=== PATIENT | female | born 1965 | race Caucasian/White ===

== ENCOUNTER 2018-11-24 00:40 | Outpatient (CLI) | payer OTHER, SELFPAY ==
--- NOTE | 2018-11-24 16:16 | DI.MAMMO_ITS ---
EXAM: MG MAMMO SCREENING CLINICAL HISTORY: SCREENING Z12.31. TECHNIQUE: Bilateral full field digital CC and MLO mammographic images were obtained with 3D tomosyn thesis and utilizing computer aided detection (CAD). COMPARISON: There are multiple priors with the most recent from 09/03/2016. FINDINGS: Masses/Architectural Distortion: None seen. Microcalcifications: No suspicious pleomorphic-type are seen. IMPRESSION: 1. No significant interval change with no specific features of malignancy noted. 2. Unless there is more urgent need, screening mammography is recommended, as per [place] [employer] guidelines. ACR BI-RAD Category- 1 Negative Breast Density - Category A - Almost entirely fatty A negative radiographic report should not delay biopsy if a dominant or clinically suspicious mass is present. Up to ten percent of cancers are not identified on mammography. A negative report may reinforce clinical impression. Adenosis and dense breasts may obscure an underlying neoplasm. False positive reports average 6 to 10%.
== END 2018-11-24 01:00 ==
PROVIDERS: PCP Family Medicine; Visit Provider Family Medicine
DX: Z12.31 Encounter for screening mammogram for malignant neoplasm of breast (principal)
CPT/HCPCS: 77063; 77067

== ENCOUNTER 2019-11-03 09:21 | Outpatient (REF) | payer MEDICAID, SELFPAY ==
[2019-11-03 21:40] LABS: HCT 43.8 % (36.0-46.0); HGB 13.7 g/dL (11.2-15.7); MCH 28.3 pg (27.0-33.0); MCHC 31.3 % (32.0-36.0); MCV 90.5 fL (80-95); Platelet Count 355 10^3/uL (130-400); RBC 4.84 10^6/uL (3.93-5.22); RDW 14.1 % (11.7-14.6); RDW-SD 46.7 fL; WBC 8.86 10^3/uL (4.4-10.8)
[2019-11-03 21:45] LABS: ALT 33 U/L (14-59); AST 20 U/L (15-37); Albumin 3.2 g/dL (3.4-5.0); Alkaline Phosphatase 179 U/L (46-116); Anion Gap 4.9 mmol/L (3-11); BUN 9 mg/dL (7-18); Bilirubin, Total 0.5 mg/dL (0.2-1.0); CO2 30.1 mmol/L (21.0-32.0); CREATININE 0.71 mg/dL (0.55-1.02); Calcium 9.1 mg/dL (8.5-10.1); Calculated LDL 97 mg/dL (<100); Chloride 104 mmol/L (98-107); Cholesterol 172 mg/dL (<200); Glucose 98 mg/dL (74-106); HDL Cholesterol 55 mg/dL (40-60); Potassium 4.5 mmol/L (3.5-5.1); Sodium 139 mmol/L (136-145); Total Protein 7.3 g/dL (6.4-8.2); Triglyceride 100 mg/dL (<150)
== END 2019-11-03 09:41 ==
LOC: NCHCN 09:21
PROVIDERS: PCP Family Medicine; Visit Provider Family Medicine
DX: E78.5 Hyperlipidemia, unspecified (principal); E66.9 Obesity, unspecified
CPT/HCPCS: 80053; 80061; 85027

== ENCOUNTER 2019-11-09 03:46 | Outpatient (CLI) | payer MEDICAID, SELFPAY ==
[2019-11-09 12:52] LABS: TSH 0.83 uIU/mL (0.36-3.74)
[2019-11-09 16:23] LABS: T3,Free 3.1 pg/mL (2.8-5.3)
[2019-11-09 16:39] LABS: T3, Total 145 ng/dL (97-169)
[2019-11-10 11:29] LABS: Parathyroid Hormone,Intact 65 pg/mL (19-88)
== END 2019-11-09 04:06 ==
PROVIDERS: PCP Family Medicine; Visit Provider Family Medicine
DX: R74.8 Abnormal levels of other serum enzymes (principal); E78.5 Hyperlipidemia, unspecified
CPT/HCPCS: 36415; 83915; 83970; 84436; 84439; 84443; 84480; 84481

== ENCOUNTER 2019-11-23 01:12 | Outpatient (CLI) | payer MEDICAID, SELFPAY ==
--- NOTE | 2019-11-23 | DI.US_ITS ---
EXAM: US ABDOMEN CLINICAL HISTORY: ELEVATED ALK PHOS,R74.8 TECHNIQUE: Ultrasound abdomen performed using standard protocol. COMPARISON: No exams were available for comparison FINDINGS: LIVER: Normal size and echogenicity. No focal liver lesions are seen.. GALLBLADDER:. Status post cholecystectomy BILIARY SYSTEM: No intrahepatic or extrahepatic biliary ductal dilation. KIDNEYS: Kidneys are symmetric in size. No evidence of renal calculi. No evidence of hydronephrosis. 2.6 centimeter cyst at the upper pole of the left kidney is identified. PANCREAS: Normal where visualized. SPLEEN: Not enlarged. ABDOMINAL AORTA AND IVC: Visualized portions normal caliber. ASCITES: None seen. IMPRESSION: Post cholecystectomy. No acute abnormality. DATA REPOSITORY:
== END 2019-11-23 01:32 ==
PROVIDERS: PCP Family Medicine; Visit Provider Family Medicine
DX: R74.8 Abnormal levels of other serum enzymes (principal); Z90.49 Acquired absence of other specified parts of digestive tract
CPT/HCPCS: 76700

== ENCOUNTER 2020-11-02 21:57 | Outpatient (REF) | payer BC, MEDICAID, SELFPAY ==
[2020-11-02 16:06] LABS: HCT 44.3 % (36.0-46.0); HGB 13.7 g/dL (11.2-15.7); MCH 28.1 pg (27.0-33.0); MCHC 30.9 % (32.0-36.0); MCV 90.8 fL (80-95); MPV 9.6 fL (8.0-11.0); Platelet Count 364 10^3/uL (130-400); RBC 4.88 10^6/uL (3.93-5.22); RDW 13.7 % (11.7-14.6); WBC 9.35 10^3/uL (4.4-10.8)
[2020-11-02 16:10] LABS: ALT 29 U/L (14-59); AST 17 U/L (15-37); Albumin 3.3 g/dL (3.4-5.0); Alkaline Phosphatase 185 U/L (46-116); Anion Gap 6.7 mmol/L (3-11); BUN 9 mg/dL (7-18); Bilirubin, Total 0.3 mg/dL (0.2-1.0); CO2 30.3 mmol/L (21.0-32.0); CREATININE 0.8 mg/dL (0.55-1.02); Calcium 9.4 mg/dL (8.5-10.1); Calculated LDL 96 mg/dL (<100); Chloride 105 mmol/L (98-107); Cholesterol 176 mg/dL (<200); Glucose 93 mg/dL (74-106); HDL Cholesterol 63 mg/dL (40-60); Potassium 4.9 mmol/L (3.5-5.1); Sodium 142 mmol/L (136-145); Total Protein 7.5 g/dL (6.4-8.2); Triglyceride 88 mg/dL (<150)
== END 2020-11-02 21:58 | disposition home or self-care (01) ==
LOC: NCHCN 21:57
PROVIDERS: PCP Family Medicine; Referring Provider Family Medicine; Visit Provider Family Medicine
DX: R74.8 Abnormal levels of other serum enzymes (principal); E78.5 Hyperlipidemia, unspecified; E66.9 Obesity, unspecified
CPT/HCPCS: 80053; 80061; 85027

== ENCOUNTER 2020-12-07 01:49 | Outpatient (CLI) | payer BC, MEDICAID, SELFPAY ==
--- NOTE | 2020-12-07 07:46 | DI.MAMMO_ITS ---
Exam(s) MAMMO SCREENING EXAM: MAMMO SCREENING CLINICAL HISTORY: FLACO, Z12.31 TECHNIQUE: Mammograms were interpreted according to the usual protocol including computer analysis w Voice123 system, tomosynthesis and C-view imaging. COMPARISON: FINDINGS: The breasts are of moderate density with fairly symmetrical distribution of fibroglandular tissue. N o dominant mass or clumped microcalcification is identified in either breast. The current examinatio n is compared with previous examinations including November 2018 and there has been no gross interval change in appearance in comparison with the prior studies. IMPRESSION: No specific evidence of malignancy at this time. Routine screening examinations are suggested at yea rly intervals in this age group according to the ACS ACR guidelines. BI-RADS Category 1 - Negative Breast Density - Category B - Scattered areas of fibroglandular density
== END 2020-12-07 02:09 ==
PROVIDERS: PCP Family Medicine; Visit Provider Family Medicine
DX: Z12.31 Encounter for screening mammogram for malignant neoplasm of breast (principal)
CPT/HCPCS: 77063; 77067

== ENCOUNTER 2021-11-05 15:25 | Outpatient (REF) | payer BC, MEDICAID, SELFPAY ==
[2021-11-05 15:46] LABS: ALT 26 U/L (14-59); AST 21 U/L (15-37); Albumin 3.1 g/dL (3.4-5.0); Alkaline Phosphatase 169 U/L (46-116); Anion Gap 6.7 mmol/L (3-11); BUN 12 mg/dL (7-18); Bilirubin, Total 0.5 mg/dL (0.2-1.0); CO2 30.3 mmol/L (21.0-32.0); CREATININE 0.8 mg/dL (0.55-1.02); Calculated LDL 84 mg/dL (<100); Chloride 106 mmol/L (98-107); Cholesterol 157 mg/dL (<200); Estimated GFR 85.89 (mL/min/1.73m2); Glucose 93 mg/dL (74-106); HDL Cholesterol 61 mg/dL (40-60); Potassium 4.5 mmol/L (3.5-5.1); Sodium 143 mmol/L (136-145); Total Protein 7.4 g/dL (6.4-8.2); Triglyceride 63 mg/dL (<150)
[2021-11-05 16:49] LABS: Vitamin D 25 Total 32.9 ng/mL (30-100)
== END 2021-11-05 15:26 | disposition home or self-care (01) ==
LOC: NCHCN 15:25
PROVIDERS: PCP Family Medicine; Visit Provider Family Medicine
DX: R74.8 Abnormal levels of other serum enzymes (principal); E78.5 Hyperlipidemia, unspecified; E55.9 Vitamin D deficiency, unspecified; E66.9 Obesity, unspecified
CPT/HCPCS: 80053; 80061; 82306

== ENCOUNTER 2021-11-16 17:33 | Outpatient (REF) | payer BC, MEDICAID, SELFPAY ==
--- NOTE | 2021-11-16 16:00 | PAPFT_PTH ---
PATIENT: Valentine Ma LOC: [facility]#:[id number] AGE/SX: 56/F ROOM: RE11/16/[address]: Carolyn Yun : 1965 BED: DIS: 11/16/2021 SPEC #: [id number] RECD: 11/16/21 18:33 STATUS: AKIL REEric #: [id number] KIMBERLEY: 11/16/21 16:[address]: Carolyn Yun DEPT: [facility] Cytology RECD BY: Rafaela Stewart Tissues: 1 - CX/ENDOCX FOR PAP SMEARS Procedures: PAP THIN PREP/UVM Screening HPV DNA PROBE Comments: [id number]
== END 2021-11-16 17:34 | disposition home or self-care (01) ==
LOC: NCHCN 17:33
PROVIDERS: PCP Family Medicine; Visit Provider Family Medicine
DX: Z12.4 Encounter for screening for malignant neoplasm of cervix (principal); Z11.51 Encounter for screening for human papillomavirus (HPV)
CPT/HCPCS: 88142; 87624

== ENCOUNTER 2022-11-20 09:25 | Outpatient (REF) | payer BC, MEDICAID, SELFPAY ==
[2022-11-20 16:46] LABS: ALT 26 U/L (14-59); AST 18 U/L (15-37); Albumin 2.9 g/dL (3.4-5.0); Alkaline Phosphatase 158 U/L (46-116); Anion Gap 6.9 mmol/L (3-11); BUN 9 mg/dL (7-18); Bilirubin, Total 0.3 mg/dL (0.2-1.0); CO2 30.1 mmol/L (21.0-32.0); CREATININE 0.7 mg/dL (0.55-1.02); Calcium 9.2 mg/dL (8.5-10.1); Calculated LDL 78 mg/dL (<100); Chloride 104 mmol/L (98-107); Cholesterol 148 mg/dL (<200); Estimated GFR 100.19 (mL/min/1.73m2); Glucose 98 mg/dL (74-106); HDL Cholesterol 52 mg/dL (40-60); Potassium 4.4 mmol/L (3.5-5.1); Sodium 141 mmol/L (136-145); Total Protein 7.3 g/dL (6.4-8.2); Triglyceride 92 mg/dL (<150)
== END 2022-11-20 09:26 | disposition home or self-care (01) ==
LOC: NCHCN 09:25
PROVIDERS: PCP Family Medicine; Visit Provider Family Medicine
DX: Z00.00 Encounter for general adult medical examination without abnormal findings (principal); E78.5 Hyperlipidemia, unspecified; E55.9 Vitamin D deficiency, unspecified; R74.8 Abnormal levels of other serum enzymes; E66.9 Obesity, unspecified
CPT/HCPCS: 80053; 80061

== ENCOUNTER → 2022-12-09 03:18 | Outpatient (CLI) | payer BC, MEDICAID, SELFPAY ==
--- NOTE | 2022-12-09 | DI.MAMMO_ITS ---
Exam(s) MAMMO SCREENING EXAM: MAMMO SCREENING CLINICAL HISTORY: SCREENING, Z12.31 TECHNIQUE: Bilateral full field digital CC and MLO mammographic images were obtained with 3D tomosyn thesis and utilizing computer aided detection (CAD). COMPARISON: Available for comparison. FINDINGS: Masses/Architectural Distortion: None seen. Microcalcifications: No suspicious pleomorphic-type are seen. Skin Thickening/Nipple Retraction: None. IMPRESSION: 1. No significant interval change with no specific features of malignancy noted. 2. Unless there is more urgent need, screening mammography is recommended, as per [place] [employer] guidelines. BI-RADS Category 1 - Negative Breast Density - Category B - Scattered areas of fibroglandular density Breast density category C or D implies that the patient has dense breast tissue. Dense breast tissue is very common and is not abnormal but dense breast tissue can make it harder to find cancer on a ma mmogram. Also, dense breast tissue may increase their breast cancer risk. This information about the result of the mammogram report was provided to the patient to raise their awareness. Use this report when you speak with the patient about their risks for breast cancer, which includes their family hist ory. At that time, you may recommend for more screening tests (Ultrasound or MRI) as they might be us eful based on their risk. A negative radiographic report should not delay biopsy if a dominant or clinically suspicious mass is present. Up to ten percent of cancers are not identified on mammography. A negative report may reinforce clinical impression. Adenosis and dense breasts may obscure an underlying neoplasm. False positive reports average 6 to 10%. Patient will receive a letter notifying them of these results.
== END ==
PROVIDERS: PCP Family Medicine; Visit Provider Family Medicine
DX: Z12.31 Encounter for screening mammogram for malignant neoplasm of breast (principal)
CPT/HCPCS: 77063; 77067

== ENCOUNTER 2023-11-21 02:45 | Outpatient (CLI) | payer BC, SELFPAY ==
--- OUTSIDE RECORDS SUMMARY | 2023-11-21 03:12 | XMS_ITS | Clinical Summary ---
Author Organization [facility] [place] [address] Care Team Providers Care Banana Loader Name Role Phone Carolyn Yun MD Primary Care Provider [phone] Allergies No known active allergies Medications Medication Sig Dispensed Refills Start Date End Date Status atorvastatin (Lipitor) 20 mg Tablet Take 20 mg by mouth daily. 10/22/2019 Active cholecalciferol, Vitamin D3, (cholecalciferol, Vitamin D3,) 50 mcg (2,000 unit) Capsule Take by mouth. Active multivitamin (THERAGRAN) Tablet Take 1 tablet by mouth daily. Active Active Problems No known active problems Social History Tobacco Use Types Packs/Day Years Used Date Smoking Tobacco: Never Smokeless Tobacco: Never Sex and Gender Information Value Date Recorded Sex Assigned at Not on file Gender Identity Not on file Sexual Orientation Not on file Last Filed Vital Signs Vital Sign Reading Time Taken Comments Blood Pressure 157/105 01/12/2020 1:56 PM EST Pulse 71 01/12/2020 1:56 PM EST Temperature - - Respiratory Rate - - Oxygen Saturation - - Inhaled Oxygen Concentration - - Weight 92.3 kg (203 lb 6.4 oz) 01/12/2020 1:56 P M EST Height 157.5 cm (5' 2) 01/12/2020 1:56 PM EST Body Mass Index 37.2 01/12/2020 1:56 PM EST Plan of Treatment Health Maintenance Due Date Last Done Comments CT Colonography 1965 Colonoscopy 1965 Colorectal Cancer Screening 1965 FIT DNA 1965 FIT 1965 Sigmoidoscopy (10 year) with FIT yearly 1965 Sigmoidoscopy 1965 HIV screen 1982 Hepatitis B vaccine (0-59 yrs) (1) 07/07/1983 Tdap adult (Retired) 07/07/1983 Tetanus vaccine (Retired) 07/07/1983 HPV test 1994 PAP Smear 1994 Breast Cancer Share Decision Needed 2004 Breast Cancer screening 2004 Zoster vaccine (1 of 2) 2014 Advance Directive 07/07/2019 Covid-19 Vaccine (1 - 2022-24 season) 2023 Influenza (Flu) vaccine (1 o f 1 - Influenza standard series) 10/26/2023 Diabetes Screening (HgbA1C or Glucose) Discontinued Hepatitis C Screening Completed 01/12/2020 Procedures Procedure Name Priority Date/Time Associated Diagnosis Comments HC HEPATITIS C ANTIBODY Routine 01/12/2020 3:07 PM EST Elevated liver enzymes COMPREHENSIVE METABOLIC PANEL Routine 01/12/2020 3:07 PM EST Elevated liver enzymes from Last 3 Months or Most Recently Relevant to Health Maintenance Results * Hepatitis C Antibody (01/12/2020 3:07 PM EST) Pathologist [facility] Hepatitis C Antibody Negative Negative [facility] Blood specimen (specimen) 01/12/2020 3:07 PM EST 01/12/2020 3:10 PM EST Narrative Resulting Agency Comment Spec In Lab Nay Myles APRN CHEMISTRY ORDERABL ES [facility] [place] [address] * (ABNORMAL) Comprehensive metabolic panel (non-fasting) (01/12/2020 3:07 PM EST) Glucose 89 65 - 199 mg/dL [facility] Comment:Diabetes: >=200 mg/d L plus symptoms Blood Urea Nitrogen 13 8 - 18 mg/dL [facility] Creatinine 0.69(L) 0.70 - 1.20 mg/dL [facility] Sodium 138 135 - 145 mmol/L [facility] Potassium 4.2 3.5 - 5.0 mmol/L [facility] Comment: Please note: ??Patients with WBC >100,000 may have falsely elevated Potassium levels. ??For accurate Potassium quantification in these patients send serum separator tube (gold top) for subsequent determinations. ??Contact the Clinical Chemistry Laboratory if there are any questions. Chloride 103 98 - 107 mmol/L [facility] Carbon Dioxide 30 22 - 31 mmol/L [facility] Anion Gap 5 5 - 15 mmol/L [facility] Calcium 10.1 8.5 - 10.5 mg/dL [facility] Protein, Total 7.9 6.1 - 8.0 gm/dL [facility] Albumin 3.9 3.2 - 5.2 gm/dL [facility] Aspartate Aminotransferase 21 0 - 30 unit/L [facility] Alanine Aminotransferase 23 0 - 30 unit/L [facility] Alkaline Phosphatase 185(H) 35 - 105 unit/L [facility] Bilirubin, Total 0.2 0.2 - 1.3 mg/dL [facility] Est Glomerular Filtration Rate 98 >=60 mL/min/1. 73 m?? [facility] Comment: The eGFR was calculated using the CKD-EPI equation. As with all creatinine based estimates of kidney function, eGFR values calculated with the CKD-EPI equation are not accurate in patients with acute kidney failure, extremes of body mass or the acutely ill. [email or web address] eGFR 114 >=60 mL/min/1. 73 m?? [facility] Comment: The eGFR was calculated using the CKD-EPI equation. As with all creatinine based estimates of kidney function, eGFR values calculated with the CKD-EPI equation are not accurate in patients with acute kidney failure, extremes of body mass or the acutely ill. [email or web address] Blood specimen (specimen) 01/12/2020 3:07 PM EST 01/12/2020 3:10 PM EST Narrative Resulting Agency Comment Spec In Lab Nay Myles [place] [address] from Last 3 Months or Most Recently Relevant to Health Maintenance Care Teams Banana Loader Relationship Specialty Start Date End Date Carolyn Yun MD [address] [place], [place] [id number] PCP - General Family Medicine 11/22/19
--- OUTSIDE RECORDS SUMMARY | 2023-11-21 03:12 | XMS_ITS | Encounter Summary ---
Author Organization [facility] Address [address] [place] [address] Care Team Providers Care Wastewater Supervisor Name Role Phone Unavailable Primary Care Provider Unavailabl e Encounter Details Date Type Department Care Team (Late st Contact Info) Description 04/06/2003 Results Only [facility] - [facility] conversion [address] [place] [address] Tyrell Perry FNP [address] [facility] [place], [place] [address] Social History Tobacco Use Types Packs/Day Years Used Date Smoking Tobacco: Never Assessed Sex and Gender Information Value Date Recorded Sex Assigned at Not on file Gender Identity Not on file Sexual Orientation Not on file documented as of this encounter Plan of Treatment Not on file documented as of this encounter Procedures Procedure Name Priority Date/Time Associated Diagnosis Comments CYTOPATHOLOGY Routine 04/06/2003 0:00 EST documented in this encounter Results * CYTOPATHOLOGY (04/06/2003 0:00 EST) Pathology Report: CYTOPATHOLOGY REPORT Reports generated via electronic interface contain original data; however they are lacking the format of the original report. Caution should be taken when reading/interpreti ng unformatted reports. Name: ? SHAMEKA SAN ? Accession #: ? [id number] : ? 1965 (Age: 37) ??F ?Collect Date: ? 04/06/2003 Location: ? [facility] ? Receive Date: ? 04/08/2003 Provider: ?TYRELL PERRY EDGE DYER Copy to: ? Specimen/Source: ?ThinPrep Pap Test, Cervix/Endocervix Last Menstrual Period: ? 03/14/03 Hormonal/Contracep tive Status: ? Control Pills ? SPECIMEN ADEQUACY ? Satisfactory for Evaluation - transformation zone component present GENERAL CATEGORIZATION ? Negative for Intraepithelial Lesion or Malignancy INTERPRETATION ? Fungal organisms present morphologically consistent with Nazia species. ? Document reviewed and electronically signed by: ? JENI Barrett(ASCP) ? Report Date: ??04/11/2003 13:47 End of Report [facility] 04/06/2003 04/08/2003 Tyrell Perry EDGE DYER PATHOLOGY ORDERABLES Performing Organization Address City/State/[facility] Co de Phone Number [facility] [address] [place] [address] documented in this encounter Visit Diagnoses Not on filedocumented in this encounter
--- OUTSIDE RECORDS SUMMARY | 2023-11-21 03:12 | XMS_ITS | Clinical Summary ---
Author Organization [facility] Address [address] [place] [address] Care Team Providers Care Wire Drawing Die Maker Name Role Phone Carolyn Yun MD Primary Care Provider [phone] Social History Tobacco Use Types Packs/Day Years Used Date Smoking Tobacco: Never Assessed Sex and Gender Information Value Date Recorded Sex Assigned at Not on file Gender Identity Not on file Sexual Orientation Not on file Plan of Treatment Health Maintenance Due Date Last Done Comments Hepatitis C Screen 1965 Hepatitis B Vaccine (1 of 3 - 19+ 3-dose series) 07/06 COVID-19 Vaccine ( season) 2022 Care Teams Wire Drawing Die Maker Relationship Specialty Start Date End Date Carolyn Yun MD PCP - General 06/20/15
--- OUTSIDE RECORDS SUMMARY | 2023-11-21 03:12 | XMS_ITS | Encounter Summary ---
Author Organization [facility] Address [address] [place] [address] Care Team Providers Care Broth Setter Name Role Phone Unavailable Primary Care Provider Unavailabl e Encounter Details Date Type Department Care Team (Late st Contact Info) Description 02/06/2001 Results Only [facility] - Maple conversion [address] [place] [address] Tyrell Perry FNP [address] [facility] [place], [place] [address] Social History Tobacco Use Types Packs/Day Years Used Date Smoking Tobacco: Never Assessed Sex and Gender Information Value Date Recorded Sex Assigned at Not on file Gender Identity Not on file Sexual Orientation Not on file documented as of this encounter Plan of Treatment Not on file documented as of this encounter Procedures Procedure Name Priority Date/Time Associated Diagnosis Comments CYTOPATHOLOGY Routine 02/06/2001 0:00 EST documented in this encounter Results * CYTOPATHOLOGY (02/06/2001 0:00 EST) Pathology Report: CYTOPATHOLOGY REPORT Reports generated via electronic interface contain original data; however they are lacking the format of the original report. Caution should be taken when reading/interpreti ng unformatted reports. Name: ? SHAMEKA SAN ? Accession #: ? [id number] : ? 1965 (Age: 35) ??F ?Collect Date: ? 02/06/2001 Location: ? [facility] ? Receive Date: ? 02/11/2001 Provider: ?TYRELL PERRY BASEBALL INSPECTOR AND REPAIRER Copy to: ? Specimen/Source: ?Conventional Pap Test, Cervix/Endocervix Last Menstrual Period: ? 01/12/01 Hormonal/Contracep tive Status: ? Control Pills ? SPECIMEN ADEQUACY ? Satisfactory for evaluation. GENERAL CATEGORIZATION ? Within Normal Limits ? Document reviewed and electronically signed by: ? Jeanette Sherman, ??SCT(ASCP) ? Report Date: ??02/13/2001 08:39 End of Report [facility] 02/06/2001 02/11/2001 Tyrell Perry BASEBALL INSPECTOR AND REPAIRER PATHOLOGY ORDERABLES [facility] [address] [place] [address] documented in this encounter Visit Diagnoses Not on filedocumented in this encounter
--- OUTSIDE RECORDS SUMMARY | 2023-11-21 03:12 | XMS_ITS | Encounter Summary ---
Author Organization [facility] Address [address] [place] [address] Care Team Providers Care Station Repairer Name Role Phone Unknown, Provider Primary Care Provider [phone] Encounter Details Date Type Department Care Team (Latest Contact Info) Description 06/16/2015 7:54 EDT - 06/16/2015 23:59 EDT Hospital Encounter [address] [address] Unknown, Provider, Discharge Disposition: Home or Self Care Social History Tobacco Use Types Packs/Day Years Used Date Smoking Tobacco: Never Assessed Sex and Gender Information Value Date Recorded Sex Assigned at Not on file Gender Identity Not on file Sexual Orientation Not on file documented as of this encounter Discharge Disposition Disposition Code Departure Means Destination Home or Self Shelter documented in this encounter Plan of Treatment Not on file documented as of this encounter Visit Diagnoses Not on filedocumented in this encounter Care Teams Station Repairer Relationship Specialty Start Date End Date Unknown, Provider, PCP - General 12/31/14 06/19/15 documented as of this encounter
--- OUTSIDE RECORDS SUMMARY | 2023-11-21 03:12 | XMS_ITS | Encounter Summary ---
Author Organization [facility] Address [address] [place] [address] Care Team Providers Care Guide Visitor Name Role Phone Unavailable Primary Care Provider Unavailabl e Encounter Details Date Type Department Care Team (Late st Contact Info) Description 09/24/2005 Results Only [facility] - Maple conversion [address] [place] [address] Tyrell Perry FNP [address] [facility] [place], [place] [address] Social History Tobacco Use Types Packs/Day Years Used Date Smoking Tobacco: Never Assessed Sex and Gender Information Value Date Recorded Sex Assigned at Not on file Gender Identity Not on file Sexual Orientation Not on file documented as of this encounter Plan of Treatment Not on file documented as of this encounter Procedures Procedure Name Priority Date/Time Associated Diagnosis Comments CYTOPATHOLOGY Routine 09/24/2005 0:00 EDT documented in this encounter Results * CYTOPATHOLOGY (09/24/2005 0:00 EDT) Pathology Report: CYTOPATHOLOGY REPORT Reports generated via electronic interface contain original data; however they are lacking the format of the original report. Caution should be taken when reading/interpreti ng unformatted reports. Name: ? SHAMEKA SAN ? Accession #: ? [id number] : ? 1965 (Age: 40) ??F ?Collect Date: ? 09/24/2005 Location: ? [facility] ? Receive Date: ? 09/27/2005 Provider: ?TYRELL PERRY WATER FILTER CLEANER Copy to: ? Specimen/Source: ?ThinPrep Pap Test, Cervix/Endocervix, processed on PosterousPrep Imaging System, with manual evaluation Last Menstrual Period: ? 09/02/05 Hormonal/Contracep tive Status: ? Control Pills Other: ? HPVA - HPV testing requested if ASC-US on the current ThinPrep Pap test. ? SPECIMEN ADEQUACY ? Satisfactory for Evaluation - transformation zone component present GENERAL CATEGORIZATION ? Negative for Intraepithelial Lesion or Malignancy ? Document reviewed and electronically signed by: ? JENI Islas(ASCP) ? Report Date: ??10/02/2005 07:59 End of Report [facility] 09/24/2005 09/27/2005 Tyrell HORVATHP PATHOLOGY ORDERABLES [facility] [address] [place] [address] documented in this encounter Visit Diagnoses Not on filedocumented in this encounter
--- OUTSIDE RECORDS SUMMARY | 2023-11-21 03:12 | XMS_ITS | Encounter Summary ---
Author Organization [facility] Address [address] [place] [address] Care Team Providers Care Hot Stamp Operator Name Role Phone Unavailable Primary Care Provider Unavailabl e Encounter Details Date Type Department Care Team (Late st Contact Info) Description 01/03/2011 Results Only [facility] [address] [place], [place] [address] Tyrell Perry FNP [address] [facility] [id number] Social History Tobacco Use Types Packs/Day Years Used Date Smoking Tobacco: Never Assessed Sex and Gender Information Value Date Recorded Sex Assigned at Not on file Gender Identity Not on file Sexual Orientation Not on file documented as of this encounter Plan of Treatment Not on file documented as of this encounter Procedures Procedure Name Priority Date/Time Associated Diagnosis Comments PAP TEST- RESULT ONLY Routine 01/03/2011 0:00 EST documented in this encounter Results * PAP TEST- RESULT ONLY (01/03/2011 0:00 EST) Pathology Report: CYTOPATHOLOGY REPORT Reports generated via electronic interface contain original data; however they are lacking the format of the original report. Caution should be taken when reading/interpreti ng unformatted reports. Name: ? SHAMEKA SAN ? Accession #: ? [id number] : ? 1965 (Age: 45) ??F ?Collect Date: ? 01/03/2011 Location: ? [facility] ? Receive Date: ? 01/04/2011 Provider: ?TYRELL HORVATHP Copy to: ? Specimen/Source: ?Pap Test, Cervix/Endocervix, ThinPrep Imaging System with manual evaluation Last Menstrual Period: ? 12/28/10 Other: ? Additional clinical information: yeast vulvovaginitis pm wet prep today ? SPECIMEN ADEQUACY ? Satisfactory for Evaluation - transformation zone component present GENERAL CATEGORIZATION ? Negative for Intraepithelial Lesion or Malignancy INTERPRETATION ? Fungal organisms present morphologically consistent with Nazia species. ? Document reviewed and electronically signed by: ? JENI Barrett(ASCP) ? Report Date: ??01/10/2011 11:18 End of Report [facility] 01/03/2011 01/04/2011 Tyrell HORVATHP PATHOLOGY ORDERABLES Performing Organization Address City/State/[facility] Co de Phone Number [facility] G[facility] [address] [place] [address] documented in this encounter Visit Diagnoses Not on filedocumented in this encounter
--- OUTSIDE RECORDS SUMMARY | 2023-11-21 03:12 | XMS_ITS | Encounter Summary ---
Author Organization [facility] Address [facility] [place] [address] Care Team Providers Care Staffing Administrator Name Role Phone Carolyn Yun MD Primary Care Provider [phone] Reason for Visit * Consultation (Routine) - Specialty Diagnoses / Procedures Referred By Contashli t Referred To Contact Gastroenterology Diagnoses Abnormal levels of other serum enzymes Carolyn Yun MD [address] [place] [address] [facility] [address] [place] [address] Referral ID Status Reason Start Date Expiration Date V isits Requested Visits Authorized [id number] Consult, Test & Treat Connection Center PCP Updated and/or Approved 11/17/2019 11/16/2020 12 12 Encounter Details Date Type Department Care Team (Late st Contact Info) Description 01/12/2020 2:00 PM EST Office [place] [address] Nay Ventura APRN [facility] [address] Elevated liver enzymes Social History Tobacco Use Types Packs/Day Years Used Date Smoking Tobacco: Never Smokeless Tobacco: Never Sex and Gender Information Value Date Recorded Sex Assigned at Not on file Gender Identity Not on file Sexual Orientation Not on file documented as of this encounter Last Filed Vital Signs Vital Sign Reading [...] Mass Index 37.2 01/12/2020 1:56 PM EST documented in this encounter Progress Notes * Nay Ventura APRN - 01/12/2020 2:00 PM EST HEPATOLOGY NEW PATIENT CONSULTATION Valentine Vitale 1965 DISCHARGING MACHINE OPERATOR: NAY VENTURA APRN PCP: Carolyn Yun MD Requesting Provider: REASON FOR CONSULTATION Elevated Alk Phos HISTORY OF PRESENT ILLNESS Valentine Vitale is a 54 y.o. year old female with history of hyperlipidemia and obesity with elevated Alk Phos. She had blood work for routine physical and her ALk Phos was high, and then found that her 5'Nucleotidase was also elevated, indicating this was coming from her liver. She had an ultrasound at [facility] and was told that it was normal, I do not have these results. Prior to this test, she had never been told of any prior elevation in her liver enzymes. No hx of IV drug use, intranasal drug se, blood transfusions. ROS: Constitutional: no fatigue, fever, chills, no change in weight >10lbs in last 6 months Eye: no visual changes ENT: no URI symptoms Cardio: no chest pain, palpitations Resp: no cough, no SOB GI: no abdominal pain . No blood in stools, no nausea/vomitting : no dysuria Integumentary: no new rashes, no easy bruising Musculoskeletal: no new joint pains, swelling of ankles or legs Neuro: no new numbness, weakness in extremities PAST MEDICAL/SURGICAL HISTORY Dyslipidemia - has been taking Lipitor for 10 years plus. Elevated BP (not on medication) MEDICATIONS Outpatient Medications Marked as Taking for the 01/12/20 encounter (Office Visit) with Nay Ventura APRN Medication Sig Dispense Refill ??? atorvastatin (Lipitor) 20 mg Tablet Take 20 mg by mouth daily. ??? cholecalciferol, Vitamin D3, (cholecalciferol, Vitamin D3,) 50 mcg (2,000 unit) Capsule Take byaluth. ??? multivitamin (THERAGRAN) Tablet Take 1 tablet by mouth daily. ALLERGIES Not on File SOCIAL HISTORY Lives with partner. Not working currently- was laid off from [employer] job in April d/t COVID 2 grown children. Alcohol: sometimes drinks on the weekend, maybe 2-4 drinks on the weekend. Drinks Twisted Teas NO cigarettes FAMILY HISTORY NO known liver disease in family. Mom has fatty liver, has never had any complications. PHYSICAL EXAM Vitals: 01/12/20 1356 BP: (!) 157/105 BP Location (NBP): Left arm Patient Position: Sitting BP Cuff Sizes: Adult (25-34 cm) Pulse: 71 Weight: 92.3 kg (203 lb 6.4 oz) Height: 157.5 cm (5' 2) Body mass index is 37.2 kg/m??. Gen: Well appearing, no apparent distress. Skin: no spider angiomata, no palmar erythema, no jaundice. HEENT: Sclerae anicteric, pupils equal, round, react to light. Pharynx unremarkable. Neck is supple, no adenopathy, no thyromegaly. Chest is clear. Heart: Regular rate and rhythm. Normal S1, S2, no murmurs. Abdomen: Normal bowel sounds; soft, non distended. No obvious hepatosplenomegaly. No evidence of ascites Extremities: No edema. Neuro: alert and oriented x3, no asterixis or tremor. [facility] work at [facility] 11/03/2019: Hemoglobin: 13.7 Hct: 43.8 Platelets: 355 Creatinine: 0.71 Glucose 98 Total cholesterol: 172 HDL: 55 LDL: 97 Triglycerides: 100 TSH: 0.83 ALT: 33 AST: 20 Alk Phos: 179 Albumin: 3.2 Tbili: 0.5 5'Nucleotidase: 21 (high) (nl 0-15). FIB-4: 0.55 (low likelihood of advanced fibrosis) Fibroscan Results: Median kPa: 5.9 kPa Mean IQR: 5% (goal is <30 %) Number of valid measurements: 11 (at least 10 required) Number of invalid measurements: 6 Predicted fibrosis stage: F0-1 CAP (dB/m): 302 Estimated steatosis grade: 3/3 % hepatocytes affected: > 66 % ASSESSMENT/PLAN Valentine Vitale is a 54 y.o. female with history of hyperlipidemia, obesity and elevated liver enzymes, mostly in a cholestatic pattern. I suspect that her elevated Alk Phos is most likely due to non-alcoholic fatty liver disease (NAFLD) as she has the metabolic risk factors of hyperlipidemia andobesity. Her fibroscan today also shows that over 2/3 of her liver has steatosis in it. I do not have her ultrasound report from [facility], but have requested those results. I would like to check for other causes of elevated liver enzymes with blood work today, including viral hepatitis, iron overload, autoimmune hepatitis, and celiac disease. Her fibroscan today does not show any fibrosis, which is consistent with her FIB-4 which also showsa low likelihood of fibrosis. We discussed that NAFLD is regarded as the liver manifestation of metabolic syndrome, associated with cardiovascular disease and predisposition to developing diabetes. The goals of treatment are treating or managing risk factors. We discussed the importance of lifestyle interventions and making heal thy food choices as the backbone of treatment for this condition. We set realistic weight loss goals; goal is to focus on loosing 5-10% of total body weight over a year with a target (2-3 lbs/month) by incorporating regular exercise, lifestyle modifications, healthy food choices including portion co ntrol. In addition I would recommend avoid high fructose corn syrup and artifical sweeteners, minimizing red meat consumption and following a Mediterranean diet. For further monitoring, I would recommend that her PCP follow her FIB-4 score (https://www.hepatitisc..edu/page/clinical-calculators/fib-4) and if it becomes more elevated into the indeterminate orhigh likelihood of fibrosis range, to then refer back to GI for a follow up visit and repeat fibroscan. As long as her FIB-4 remains under 1.3, would recommend that she be followed in primary care and continue to work on diet changes. Plan: - Blood work today - Dietary recommendation as above. - Can follow up with PCP with FIB-4 score, if becomes elevated over 1.3, can refer back to GI. Or can follow up with GI in 2 years for repeat fibroscan. Nay Ventura APRN Section of Gastroenterology [place] [address] Copy: Carolyn Yun MD [address] / [facility] [address] documented in this encounter Procedure Notes * Nay Ventura APRN - 01/12/2020 2:00 PM ESTAssociated Order(s): FIBROSCAN Procedure(s): FIBROSCAN Pre-Procedure Diagnose(s): Elevated liver enzymes [facility] Liver Fibrosis Assessment Report Indication: Elevated liver enzymes Performed by: NAY VENTURA APRN Procedure: Vibration Controlled Transient Elastography (VCTE) or Fibroscan [place] Protocol: Patient's identity, procedure and site were verified, confirmatory pause performed. Discussed procedure including risks and potential complications. Questions answered. Patient verbalizes understanding and wishes to proceed with Fibroscan assessment. Patient was placed in the supine position with right arm in maximum abduction to allow optimal exposure of right lateral abdomen. Patient was briefly assessed. Testing was performed in the mid-axillary location. 50Hz Shear Wave pulses were applied and the resulting Shear Wave and Propagation Speed was detected with a 3.5MHz ultrasonic signal, using the Fibroscan probe. Skin to liver capsule distance and liver parenchyma were accessed during the entire examination with the Fibroscan probe. Patient was instructed to breathe normally and abstain from sudden movements during the procedure. At least ten Sheer Waves were produced; individual measurements of each Shear Wave were calculated. Patient tolerated the procedure well with no complications. Fibroscan Results: Median kPa: 5.9 kPa Mean IQR: 5% (goal is <30 %) Number of valid measurements: 11 (at least 10 required) Number of invalid measurements: 6 Predicted fibrosis stage: F0-1 CAP (dB/m): 302 Estimated steatosis grade: 3/3 % hepatocytes affected: > 66 % Interpretation: Based on this Fibroscan result, history, clinical examination and review of laboratory and radiological data, this patient likely has stage 0 liver fibrosis and grade 3 steatosis affecting over 66% of hepatocytes. documented in this encounter Plan of Treatment Not on file documented as of this encounter Procedures Procedure Name Priority Date/Time Associated Diagnosis Comments HC HEPATITIS C ANTIBODY Routine 01/12/2020 3:07 PM EST Elevated liver enzymes HC IRON BINDING CAPACITY Routine 01/12/2020 3:07 PM EST Elevated liver enzymes HC VENIPUNCTURE Routine 01/12/2020 3:07 PM EST Elevated liver enzymes HC HEPATITIS B CORE AB Routine 0 3:07 PM EST Elevated liver enzymes HC PCH SMOOTH MUSCLE AB, SERUM Routine 01/12/2020 3:07 PM EST Elevated liver enzymes HC HEPATITIS B SURFACE AB Routine 01/12/2020 3:07 PM EST Elevated liver enzymes HC HEPATITIS B SURFACE AG Routine 01/12/2020 3:07 PM EST Elevated liver enzymes HC ANTINUCLEAR ANTIBODY,SERUM Routine 01/12/2020 3:07 PM EST Elevated liver enzymes HC FERRITIN, SERUM Routine 01/12/2020 3: 07 PM EST Elevated liver enzymes COMPREHENSIVE METABOLIC PANEL Routine 01/12/2020 3:07 PM EST Elevated liver enzymes [id number] Routine 01/12/2020 2:00 PM EST Elevated liver enzymes documented in this encounter Results * Tissue transglutaminase, IgA (01/12/2020 3:07 PM EST) TTG IgA Ab 1.0 0.1 - 10.0 u/ml [facility] Comment: Negative = <7 U/mL Equivocal = 7-10 U/mL Positive = >10 U/mL Blood specimen (specimen) 01/12/2020 3:07 PM EST 01/13/2020 7:15 AM EST Narrative Resulting Agency Comment Spec In Lab Nya Ventura CHILD NUTRITION MANAGER IMMUNOLOGY ORDERAB LES [facility] [place] [address] * [place] ([facility]/CGP/APD/NLH) (01/12/2020 3:07 PM EST) CHINO Neg Neg [facility] Comment:Anti-nuclear antibod ies were tested using an indirect immunofluorescent assay. Blood specimen (specimen) 01/12/2020 3:07 PM EST 01/13/2020 7:15 AM EST Narrative Resulting Agency Comment Spec In Lab Nay Ventura APRN LAB SEND OUT ORDER BRIANNE Performing Organization Address City/[facility]/ZIP Co de Phone Number [facility] [place] [address] * Smooth Muscle Antibody (01/12/2020 3:07 PM EST) Pathologist [facility] Sm Muscle Ab (JUNE) Negative Negative [facility] Comment: ADDITIONAL INFORMATION This test was developed and its performance characteristics determined by [facility] in a manner consistent with CLIA requirements. This test has not been cleared or approved by the U.S. Food and Drug Administration. Test Performed by: [facility] [place] [address] Lunchroom Food Service Supervisor: Steve Eid M.D. Ph.D.; CLIA# [id number] Blood specimen (specimen) 01/12/2020 3:07 PM EST 01/13/2020 9:14 AM EST Narrative Resulting Agency Comment Spec In Lab Nay Ventura APRN LAB SEND OUT ORDER BRIANNE Performing Organization Address City/[facility]/ZIP Co de Phone Number [facility] [place] [address] * Ferritin (01/12/2020 3:07 PM EST) [facility] Ferritin 206 30 - 400 ng/mL [facility] Comment: Pediatric reference ranges not verified at [facility], interpret with caution. Reference ranges for females greater than 50 years of age approach values for men, i.e., 30-400 ng/mL. Blood specimen (specimen) 01/12/2020 3:07 PM EST 01/12/2020 3:10 PM EST Narrative Resulting Agency Comment Spec In Lab Nay Ventura CHILD NUTRITION MANAGER CHEMISTRY ORDERABL ES Performing Organization Address [facility] Co de Phone Number [facility] [place] [address] * (ABNORMAL) Iron and TIBC (01/12/2020 3:07 PM EST) Iron 42 30 - 150 mcg/dL [facility] TIBC 221(L) 250 - 450 mcg/dL [facility] Iron Saturation 19(L) 20 - 50 % [facility] Blood specimen (specimen) 01/12/2020 3:07 PM EST 01/12/2020 3:10 PM EST Narrative Resulting Agency Comment Spec In Lab aNy Ventura CHILD NUTRITION MANAGER CHEMISTRY ORDERABL ES Performing Organization Address [facility] Co de Phone Number [facility] [place] [address] * Hepatitis B Core Antibody, Total (01/12/2020 3:07 PM EST) Hepatitis B Core Antibody Negative Negative [facility] Blood specimen (specimen) 01/12/2020 3:07 PM EST 01/12/2020 3:10 PM EST Narrative Resulting Agency Comment Spec In Lab Nay Ventura CHILD NUTRITION MANAGER CHEMISTRY ORDERABL ES Performing Organization Address [facility] Co de Phone Number [facility] [place] [address] * Hepatitis B Surface Antigen (01/12/2020 3:07 PM EST) Hepatitis B Surface Antigen Negative Negative [facility] Blood specimen (specimen) 01/12/2020 3:07 PM EST 01/12/2020 3:10 PM EST Narrative Resulting Agency Comment Spec In Lab Nay Ventura CHILD NUTRITION MANAGER CHEMISTRY ORDERABL ES Performing Organization Address [facility] Co de Phone Number [facility] [place] [address] * Hepatitis B Surface Antibody (01/12/2020 3:07 PM EST) Pathologist [facility] Hepatitis B Surface Antibody, Quantitative <3.5 IU/L [facility] Comment: HepB Surface Ab Quant: Unvaccinated: < 8.5 IU/L Vaccinated: > 11.5 IU/L Hepatitis B Surface Antibody Negative [facility] Comment: Patient is presumed to be not vaccinated or immune to HBV infection. Expected Results: Vaccinated: Positive Unvaccinated: Negative Blood specimen (specimen) 01/12/2020 3:07 PM EST 01/12/2020 3:10 PM EST Narrative Resulting Agency Comment Spec In Lab Nay Ventura CHILD NUTRITION MANAGER CHEMISTRY ORDERABL ES Performing Organization Address [facility] Co de Phone Number [facility] [place] [address] * Hepatitis C Antibody (01/12/2020 3:07 PM EST) [facility] Hepatitis C Antibody Negative Negative [facility] Blood specimen (specimen) 01/12/2020 3:07 PM EST 01/12/2020 3:10 PM EST Narrative Resulting Agency Comment Spec In Lab Nay Ventura CHILD NUTRITION MANAGER CHEMISTRY ORDERABL ES Performing Organization Address [facility] Co de Phone Number [facility] [place] [address] * (ABNORMAL) Comprehensive metabolic panel (non-fasting) (01/12/2020 3:07 PM EST) Pathologist [facility] Glucose 89 65 - 199 mg/dL [facility] Comment:Diabetes: >=200 mg/d L plus symptoms Blood Urea Nitrogen 13 8 - 18 mg/dL [facility] Creatinine 0.69(L) 0.70 - 1.20 mg/dL [facility] Sodium 138 135 - 145 mmol/L [facility] Potassium 4.2 3.5 - 5.0 mmol/L [facility] Comment: Please note: ??Patients with WBC >100,000 may have falsely elevated Potassium levels. ??For accurate Potassium quantification in these patients send serum separator tube (gold top) for subsequent determinations. ??Contact the Clinical Chemistry Laboratory if there are any questions. Chloride 103 98 - 107 mmol/L [facility] Carbon Dioxide 30 22 - 31 mmol/L [facility] Anion Gap 5 5 - 15 mmol/L [facility] Calcium 10.1 8.5 - 10.5 mg/dL [facility] Protein, Total 7.9 6.1 - 8.0 gm/dL [facility] Albumin 3.9 3.2 - 5.2 gm/dL [facility] Aspartate Aminotransferase 21 0 - 30 unit/L [facility] Alanine Aminotransferase 23 0 - 30 unit/L [facility] Alkaline Phosphatase 185(H) 35 - 105 unit/L [facility] Bilirubin, Total 0.2 0.2 - 1.3 mg/dL [facility] Est Glomerular Filtration Rate 98 >=60 mL/min/1. 73 m?? [facility] Comment: The eGFR was calculated using the CKD-EPI equation. As with all creatinine based estimates of kidney function, eGFR values calculated with the CKD-EPI equation are not accurate in patients with acute kidney failure, extremes of body mass or the acutely ill. [email or web address] eGFR 114 >=60 mL/min/1. 73 m?? [facility] Comment: The eGFR was calculated using the CKD-EPI equation. As with all creatinine based estimates of kidney function, eGFR values calculated with the CKD-EPI equation are not accurate in patients with acute kidney failure, extremes of body mass or the acutely ill. [email or web address] Blood specimen (specimen) 01/12/2020 3:07 PM EST 01/12/2020 3:10 PM EST Narrative Resulting Agency Comment Spec In Lab Nay Ventura APRN CHEMISTRY ORDERABL ES [facility] [place] [address] * [id number] (01/12/2020 2:00 PM EST) Narrative Nay Ventura APRN - 01/12/2020 2:00 PM EST Nay Ventura APRN ? 01/12/2020 ??3:03 PM [facility] Liver Fibrosis Assessment Report Indication: ?? Elevated liver enzymes Performed by: ??NAY VENTRUA APRN Procedure: Vibration Controlled Transient Elastography (VCTE) or Fibroscan [place] Protocol: Patient's identity, procedure and site were verified, confirmatory pause performed. Discussed procedure including risks and potential complications. Questions answered. Patient verbalizes understanding and wishes to proceed with Fibroscan assessment. Patient was placed in the supine position with right arm in maximum abduction to allow optimal exposure of right lateral abdomen. Patient was briefly assessed. Testing was performed in the mid-axillary location. 50Hz Shear Wave pulses were applied and the resulting Shear Wave and Propagation Speed was detected with a 3.5MHz ultrasonic signal, using the Fibroscan probe. Skin to liver capsule distance and liver parenchyma were accessed during the entire examination with the Fibroscan probe. Patient was instructed to breathe normally and abstain from sudden movements during the procedure. At least ten Sheer Waves were produced; individual measurements of each Shear Wave were calculated. Patient tolerated the procedure well with no complications. Fibroscan Results: Median kPa: 5.9 kPa Mean IQR: 5% (goal is <30 %) Number of valid measurements: 11 (at least 10 required) Number of invalid measurements: 6 Predicted fibrosis stage: F0-1 CAP (dB/m): 302 Estimated steatosis grade: 3/3 % hepatocytes affected: > 66 % Interpretation: Based on this Fibroscan result, history, clinical examination and review of laboratory and radiological data, this patient likely has stage 0 liver fibrosis and grade 3 steatosis affecting over 66% of hepatocytes. ?? Nay Ventura APRN PROCEDURE/MINOR FORBES RGICAL ORDERABLES documented in this encounter Visit Diagnoses Diagnosis Elevated liver enzymes Nonspecific elevation of levels of transaminase or lactic acid dehydrogenase (LDH) documented in this encounter Care Teams Staffing Administrator Relationship Specialty Start Date End Date Carolyn Yun MD [address] [place] [address] PCP - General Family Medicine 11/22/19 documented as of this encounter
--- OUTSIDE RECORDS SUMMARY | 2023-11-21 03:12 | XMS_ITS | Encounter Summary ---
Author Organization [facility] Address [address] [place] [address] Care Team Providers Care Lead Carpenter Name Role Phone Unavailable Primary Care Provider Unavailabl e Encounter Details Date Type Department Care Team (Late st Contact Info) Description 10/26/2013 Results Only [facility] Laboratory Services - [facility] ([facility]) [address] [place], [place] [address] Tyrell Perry FNP [address] [facility] [place], [place] [address] Social History Tobacco Use Types Packs/Day Years [...] Diagnosis Comments PAP TEST- RESULT ONLY Routine 10/26/2013 0:00 EDT documented in this encounter Results * PAP TEST- RESULT ONLY (10/26/2013 0:00 EDT) Pathology Report: CYTOPATHOLOGY REPORT Reports generated via electronic interface contain original data; however they are lacking the format of the original report. Caution should be taken when reading/interpreti ng unformatted reports. Name: ? SHAMEKA SAN ? Accession #: ? [id number] : ? 1965 (Age: 48) ??F ?Collect Date: ? 10/26/2013 Location: ? [facility] ? Receive Date: ? 10/28/2013 Provider: ?TYRELL PERRY MANAGER PARTY Copy to: ? Specimen/Source: ?Pap Test, Cervix/Endocervix, ThinPrep Imaging System with manual evaluation Last Menstrual Period: ? 06/07 ? SPECIMEN ADEQUACY ? Satisfactory for Evaluation - transformation zone component present GENERAL CATEGORIZATION ? Negative for Intraepithelial Lesion or Malignancy ? Document reviewed and electronically signed by: ? JENI Shah(ASCP) ? Report Date: ??11/02/2013 14:58 End of Report [facility] 10/26/2013 10/28/2013 Tyrell Perry MANAGER PARTY PATHOLOGY ORDERABLES [facility] [address] [place] [address] documented in this encounter Visit Diagnoses Not on filedocumented in this encounter
--- OUTSIDE RECORDS SUMMARY | 2023-11-21 03:12 | XMS_ITS | Encounter Summary ---
Author Organization [facility] Address [address] [place] [address] Care Team Providers Care News Director Name Role Phone Carolyn Yun MD Primary Care Provider Encounter Details Date Type Department Care Team (Latest Contact Info) Description 11/19/2021 Lab Requisition [facility] Pathology & Laboratory Medicine - [facility] [address] [place] [address] Carolyn Yun MD [address] [place] [phone] Encounter for general adult medical examination without abnormal findings; Encounter for gynecological examination (general) (routine) without abnormal findings; Encounter for screening for malignant neoplasm of cervix Social History Tobacco Use Types Packs/Day Years Used Date Smoking Tobacco: Never Assessed Sex and Gender Information Value Date Recorded Sex Assigned at Not on file Gender Identity Not on file Sexual Orientation Not on file documented as of this encounter Plan of Treatment Not on file documented as of this encounter Procedures Procedure Name Priority Date/Time Associated Diagnosis Comments PAP TEST Today 11/16/2021 16:00 EDT Encounter for general adult medical examination without abnormal findings Encounter for gynecological examination (general) (routine) without abnormal findings Encounter for screening for malignant neoplasm of cervix HPV DNA DETECTION WITH GENOTYPING, PCR Today 11/16/2021 16:00 EDT Encounter for general adult medical examination without abnormal findings Encounter for gynecological examination (general) (routine) without abnormal findings Encounter for screening for malignant neoplasm of cervix documented in this encounter Results * HUMAN PAPILLOMAVIRUS (HPV) DETECTION-HIGH RISK TYPES (11/16/2021 16:00 EDT) HPV other High Risk types, PCR Negative Negative 11/26/2021 22:25 [facility] Comment:No E6 or E7 mRNA is detected from HPV types 16,18,31,33,35,39,45,51,52,56,58,59,66, and 68 by farm worker mediated amplification. Papanicolaou smear specimen (specimen) CERVIX UTERI STRUCTURE / Unknown 11/16/2021 16:00 EDT 11/21/2021 11:29 EDT Carolyn Yun MD MICROBIOLOGY - GENER AL ORDERABLES [facility] [address] [place] [address] * PAP TEST (11/16/2021 16:00 EDT) Specimens A. Cervix and/or Endocervix , ThinPrep Imaging System with Manual Evaluation 11/26/2021 22:25 [facility] Specimen Adequacy Satisfactory for Evaluation - transformation zone component present 11/26/2021 22:25 [facility] General Categorization Negative for intraepithelial lesion or malignancy 11/26/2021 22:25 [facility] Descriptive Diagnosis Fungal organisms present morphologically consistent with Nazia species. 11/26/2021 22:25 [facility] Attestation . 11/26/2021 22:25 [facility] at 2225 Clinical History See below 11/27/19 22:25 [facility] HPV The result for the Human Papillomavirus (HPV) Detection-High Risk Types is Negative. No E6 or E7 mRNA is detected from HPV types 16,18,31,33,35,39 ,45,51,52,56,58,5 9,66, and 68 by farm worker mediated amplification.Bria ting was performed on specimen [id number] and was resulted on 11/26/2021 1940 EDT by MARGARITA, LAB INSTRUMENT RESULTS IN 11/26/2021 22:25 EDT [facility] Performing Lab [facility] 11/26/2021 22:25 EDT [facility] Scanned Images 11/26/2021 22:25 EDT [facility] Papanicolaou smear specimen (specimen) CERVIX UTERI STRUCTURE / Unknown 11/16/2021 16:00 EDT 11/19/2021 11:56 EDT Carolyn Yun MD PATHOLOGY ORDERABLES [facility] [address] [place] [address] documented in this encounter Visit Diagnoses Diagnosis Encounter for general adult medical examination without abnormal findings Unspecified general medical examination Encounter for gynecological examination (general) (routine) without abnormal findings Encounter for screening for malignant neoplasm of cervix Screening for malignant neoplasm of the cervix documented in this encounter Care Teams News Director Relationship Specialty Start Date End Date Carolyn Yun MD PCP - General 06/20/15 documented as of this encounter
--- OUTSIDE RECORDS SUMMARY | 2023-11-21 03:12 | XMS_ITS | Encounter Summary ---
Author Organization [facility] Address [address] [place] [address] Care Team Providers Care Irrigator Gravity Flow Name Role Phone Cali Yun MD Primary Care Provider Encounter Details Date Type Department Care Team (Late st Contact Info) Description 08/14/2016 Results Only [facility]- [facility] [phone] Cali Yun MD [address] [place] [phone] Social History Tobacco Use Types Packs/Day Years [...] Diagnosis Comments PAP TEST- RESULT ONLY Routine 08/14/2016 0:00 EDT documented in this encounter Results * PAP TEST- RESULT ONLY (08/14/2016 0:00 EDT) Pathology Report: CYTOPATHOLOGY REPORT Reports generated via electronic interface contain original data; however they are lacking the format of the original report. Caution should be taken when reading/interpreti ng unformatted reports. Name: ? SHAMEKA SAN ? Accession #: ? [id number] ? : ? 1965 (Age: 51) ??F ?Collect Date: ? 08/14/2016 ? Location: ? [facility] ? Receive Date: ? 08/15/2016 ? Provider: CALI YUN MD Copy to: ? Final Report SPECIMEN ADEQUACY ? Satisfactory for Evaluation - transformation zone component absent GENERAL CATEGORIZATION ? Negative for Intraepithelial Lesion or Malignancy ?? Last Menstrual Period: 2015 Specimen/Source: ??Pap Test, Vagina/Cervix, ThinPrep Imaging System with manual evaluation Document reviewed and electronically signed by: ? Taty [place], [place](ASCP) ? Report ??Date: 08/26/2016 13:35 HPV with Pap Test ? Date Ordered: ? 08/26/2016 ? Status: ?? Signed Out ?Date Complete: ? 08/28/2016 ? By: ??System Interface ? Date Reported: ? 08/28/2016 ? Interpretation RESULT: Negative for HPV. No E6 or E7 mRNA is detected from HPV types 16,18,31,33,35, 39,45,51,52,56,58, 59,66, and 68 by telegraph inspector mediated amplification. Comments Document reviewed and electronically signed by: ? System Interface ? Report date: 08/28/2016 By the signature above, the attending physician certifies that he/she has personally conducted a gross and/or microscopic examination of the described specimens and rendered or confirmed the above diagnosis. End of Report [facility] 08/14/2016 08/15/2016 Cali Yun MD PATHOLOGY ORDERABLES [facility] [address] [place] [id number] documented in this encounter Visit Diagnoses Not on filedocumented in this encounter Care Teams Irrigator Gravity Flow Relationship Specialty Start Date End Date Cali Yun MD PCP - General 06/20/15 documented as of this encounter
--- OUTSIDE RECORDS SUMMARY | 2023-11-21 03:12 | XMS_ITS | Encounter Summary ---
Author Organization [facility] Address [address] [place] [address] Care Team Providers Care Commercial Account Executive Name Role Phone Carolyn Yun MD Primary Care Provider [phone] Encounter Details Date Type Department Care Team (Late st Contact Info) Description 11/09/2019 Lab Requisition [facility] Pathology & Laboratory Medicine - [facility] [address] [place], [place] [id number] Outr Resulting Lab, Provider Social History Tobacco Use Types Packs/Day Years Used Date Smoking Tobacco: Never Assessed Sex and Gender Information Value Date Recorded Sex Assigned at Not on file Gender Identity Not on file Sexual Orientation Not on file documented as of this encounter Plan of Treatment Not on file documented as of this encounter Procedures Procedure Name Priority Date/Time Associated Diagnosis Comments PTH INTACT Routine 11/09/2019 11:25 EDT T3 FREE Routine 11/09/2019 11:25 EDT T3, TOTAL Routine 11/09/2019 11:25 EDT documented in this encounter Results * T3 FREE (11/09/2019 11:25 EDT) T3, Free 3.1 2.8 - 5.3 pg/mL 11/09/2019 16:17 EDT [facility] Blood VENOUS BLOOD / Unknown 11/09/2019 11:25 EDT 11/09/2019 15:44 EDT Provider Outr Resulting Lab CHEMISTRY & BLOOD GAS ORDERABLES [facility] [address] [place] [address] * T3, TOTAL (11/09/2019 11:25 EDT) T3, Total 145 97 - 169 ng/dL 11/09/2019 16:34 EDT [facility] Blood VENOUS BLOOD / Unknown 11/09/2019 11:25 EDT 11/09/2019 15:44 EDT Provider Outr Resulting Lab CHEMISTRY & BLOOD GAS ORDERABLES Performing Organization Address City/[facility] Co de Phone Number [facility] [address] [place] [address] * PTH INTACT (11/09/2019 11:25 EDT) Intact PTH 65 19 - 88 pg/mL 11/10/2019 11:25 EDT [facility] Blood VENOUS BLOOD / Unknown 11/09/2019 11:25 EDT 11/09/2019 15:44 EDT Provider Outr Resulting Lab CHEMISTRY & BLOOD GAS ORDERABLES Performing Organization Address City/[facility] Co de Phone Number [facility] [address] [place] [address] documented in this encounter Visit Diagnoses Not on filedocumented in this encounter Care Teams Commercial Account Executive Relationship Specialty Start Date End Date Carolyn Yun MD PCP - General 06/20/15 documented as of this encounter
--- OUTSIDE RECORDS SUMMARY | 2023-11-21 03:12 | XMS_ITS | Encounter Summary ---
Author Organization [facility] Address [address] [place] [address] Care Team Providers Care Director Of Income Tax Name Role Phone Unknown, Provider Primary Care Provider [phone] Encounter Details Date Type Department Care Team (Late st Contact Info) Description 06/16/[address] [facility]- [facility] [phone] Noris Vann, DO [address] [place] [address] Social History Tobacco Use Types Packs/Day Years Used Date Smoking Tobacco: Never Assessed Sex and Gender Information Value Date Recorded Sex Assigned at Not on file Gender Identity Not on file Sexual Orientation Not on file documented as of this encounter Plan of Treatment Not on file documented as of this encounter Procedures Procedure Name Priority Date/Time Associated Diagnosis Comments SURGICAL PATHOLOGY Routine 06/16/2015 6:40 EDT documented in this encounter Results * SURGICAL PATHOLOGY (06/16/2015 6:40 EDT) Pathology Report: SURGICAL PATHOLOGY REPORT Reports generated via electronic interface contain original data; however they are lacking the format of the original report. Caution should be taken when reading/interpret ing unformatted reports. Name: ? SHAMEKA SAN ? Accession #: ? [id number] ? : ? 1965 (Age: 49) ??F ? Collect Date: ? 06/16/2015 ? Location: ? [facility] ? Receive Date: ? 06/17/2015 ? Provider: NORIS VANN DO Copy to: CALI TIDWELL MD ? Final Pathologic Diagnosis: COLON, SIGMOID, POLYP, BIOPSY: - ??Fragments of tubular adenoma(s). Document reviewed and electronically signed by: CHERYL FLOOD MD Report ??Date: 06/20/2015 10:56 By the signature above, the attending physician certifies that he/she has personally conducted a gross and/or microscopic examination of the described specimens and rendered or confirmed the above diagnosis. Specimen(s) Received: Sigmoid polyp Clinical History: Colorectal screening; clinical diagnosis code: Z12.11 Gross Description: ? Received in formalin labelled with proper patient identification (initials M, M) and sigmoid polyp are two johnson goldstein tissues, 0.1 x 0.1 x 0.1 cm and 0.3 x 0.1 x 0.1 cm. Entirely submitted in 1. Sandy Coleman 06/19/2015 8:35 AM End of Report [facility] 06/16/2015 6:40 EDT 06/17/2015 6:40 EDT Noris Vann DO PATHOLOGY ORDERABLES [facility] [address] [place] [address] documented in this encounter Visit Diagnoses Not on filedocumented in this encounter Care Teams Director Of Income Tax Relationship Specialty Start Date End Date Unknown, Provider, PCP - General 12/31/14 06/19/15 documented as of this encounter
--- OUTSIDE RECORDS SUMMARY | 2023-11-21 03:12 | XMS_ITS | Referral Summary ---
Author Organization [facility] Address [address] [place] [address] Care Team Providers Care Orthotic Practitioner Name Role Phone Carolyn Yun MD Primary Care Provider [phone] Social History Tobacco Use Types Packs/Day Years Used Date Smoking Tobacco: Never Assessed Sex and Gender Information Value Date Recorded Sex Assigned at Not on file Gender Identity Not on file Sexual Orientation Not on file Plan of Treatment Not on file Care Teams Orthotic Practitioner Relationship Specialty Start Date End Date Carolyn Yun MD PCP - General 06/20/15
--- OUTSIDE RECORDS SUMMARY | 2023-11-21 03:12 | XMS_ITS | Encounter Summary ---
Author Organization [facility] Address [address] [place] [address] Care Team Providers Care Director Of Operations For Therapy Name Role Phone Unavailable Primary Care Provider Unavailabl e Encounter Details Date Type Department Care Team (Late st Contact Info) Description 09/12/2004 Results Only [facility] [address] [place] [address] Tyrell Perry FNP [address] [facility] [place], [place] [id number] Social History Tobacco Use Types Packs/Day Years Used Date Smoking Tobacco: Never Assessed Sex and Gender Information Value Date Recorded Sex Assigned at Not on file Gender Identity Not on file Sexual Orientation Not on file documented as of this encounter Plan of Treatment Not on file documented as of this encounter Procedures Procedure Name Priority Date/Time Associated Diagnosis Comments CYTOPATHOLOGY Routine 09/12/2004 0:00 EDT documented in this encounter Results * CYTOPATHOLOGY (09/12/2004 0:00 EDT) Pathology Report: CYTOPATHOLOGY REPORT Reports generated via electronic interface contain original data; however they are lacking the format of the original report. Caution should be taken when reading/interpreti ng unformatted reports. Name: ? SHAMEKA SAN ? Accession #: ? [id number] : ? 1965 (Age: 39) ??F ?Collect Date: ? 09/12/2004 Location: ? [facility] ? Receive Date: ? 09/14/2004 Provider: ?TYRELL PERRY GLASS INSTALLER Copy to: ? Specimen/Source: ?ThinPrep Pap Test, Cervix/Endocervix, processed on [employer] ThinPrep Imaging System, with manual evaluation Last Menstrual Period: ? 09/04/04 Hormonal/Contracep tive Status: ? Control Pills Other: ? Additional clinical information: 2 C-Sections, os is very small-almost closed HPVA - HPV testing requested if ASC-US on the current ThinPrep Pap test. ? SPECIMEN ADEQUACY ? Satisfactory for Evaluation - transformation zone component present GENERAL CATEGORIZATION ? Negative for Intraepithelial Lesion or Malignancy ? Document reviewed and electronically signed by: ? JENI Shah(ASCP) ? Report Date: ??09/21/2004 14:51 End of Report [facility] 09/12/2004 09/14/2004 Tyrell HORVATHP PATHOLOGY ORDERABLES [facility] [address] [place] [address] documented in this encounter Visit Diagnoses Not on filedocumented in this encounter
[2023-11-21 09:23] LABS: ALT 23 U/L (14-59); AST 18 U/L (15-37); Alkaline Phosphatase 173 U/L (46-116); Anion Gap 5.3 mmol/L (3-11); BUN 10 mg/dL (7-18); Bilirubin, Total 0.38 mg/dL (0.2-1.0); CO2 29.7 mmol/L (21.0-32.0); CREATININE 0.7 mg/dL (0.55-1.02); Calcium 9.1 mg/dL (8.5-10.1); Calculated LDL 79 mg/dL (<100); Chloride 105 mmol/L (98-107); Cholesterol 156 mg/dL (<200); Estimated GFR 99.57 (mL/min/1.73m2); Glucose 100 mg/dL (74-106); HDL Cholesterol 59 mg/dL (40-60); Sodium 140 mmol/L (136-145); Total Protein 7.7 g/dL (6.4-8.2); Triglyceride 91 mg/dL (<150)
== END 2023-11-21 02:46 | disposition home or self-care (01) ==
LOC: LBO 02:45
PROVIDERS: PCP Family Medicine; Visit Provider Family Medicine
DX: Z00.00 Encounter for general adult medical examination without abnormal findings (principal)
CPT/HCPCS: 36415; 80053; 80061; 82306

== ENCOUNTER 2023-12-11 01:03 | Outpatient (CLI) | payer BC, SELFPAY ==
--- NOTE | 2023-12-11 | DI.MAMMO_ITS ---
Exam(s) MAMMO SCREENING EXAM: MAMMO SCREENING CLINICAL HISTORY: SCREENING MAMMO Z12.31 TECHNIQUE: Bilateral full field digital CC and MLO mammographic images were obtained with 3D tomosyn thesis and utilizing computer aided detection (CAD). COMPARISON: Available for comparison. FINDINGS: Masses/Architectural Distortion: None seen. Microcalcifications: No suspicious pleomorphic-type are seen. Skin Thickening/Nipple Retraction: None. IMPRESSION: 1. No significant interval change with no specific features of malignancy noted. 2. Unless there is more urgent need, screening mammography is recommended, as per [employer] guidelines. BI-RADS Category 1 - Negative Breast Density - Category A - Almost entirely fatty Breast density category C or D implies that the patient has dense breast tissue. Dense breast tissue is very common and is not abnormal but dense breast tissue can make it harder to find cancer on a ma mmogram. Also, dense breast tissue may increase their breast cancer risk. This information about the result of the mammogram report was provided to the patient to raise their awareness. Use this report when you speak with the patient about their risks for breast cancer, which includes their family hist ory. At that time, you may recommend for more screening tests (Ultrasound or MRI) as they might be us eful based on their risk. A negative radiographic report should not delay biopsy if a dominant or clinically suspicious mass is present. Up to ten percent of cancers are not identified on mammography. A negative report may reinforce clinical impression. Adenosis and dense breasts may obscure an underlying neoplasm. False positive reports average 6 to 10%. Patient will receive a letter notifying them of these results.
== END 2023-12-11 01:23 ==
LOC: DI 01:03
PROVIDERS: PCP Family Medicine; Visit Provider Family Medicine
DX: Z12.31 Encounter for screening mammogram for malignant neoplasm of breast (principal)
CPT/HCPCS: 77063; 77067

== ENCOUNTER 2024-11-24 08:27 | Outpatient (REF) | payer BC, SELFPAY ==
[2024-11-24 15:24] LABS: ALT 24 U/L (14-59); AST 16 U/L (15-37); Albumin 3.2 g/dL (3.4-5.0); Alkaline Phosphatase 192 U/L (46-116); Anion Gap 7.8 mmol/L (3-11); BUN 9 mg/dL (7-18); Bilirubin, Total 0.5 mg/dL (0.2-1.0); CO2 30.2 mmol/L (21.0-32.0); Calcium 8.9 mg/dL (8.5-10.1); Calculated LDL 91 mg/dL (<100); Chloride 104 mmol/L (98-107); Cholesterol 162 mg/dL (<200); Estimated GFR 98.95 (mL/min/1.73m2); Glucose 92 mg/dL (74-106); HDL Cholesterol 53 mg/dL (>or=50); Potassium 4.3 mmol/L (3.5-5.1); Sodium 142 mmol/L (136-145); Total Protein 7.3 g/dL (6.4-8.2); Triglyceride 91 mg/dL (<150); Vitamin D 25 Total 34 ng/mL (30-100)
[2024-11-24 17:04] LABS: GGT 35 U/L (5-55)
== END 2024-11-24 08:28 | disposition home or self-care (01) ==
LOC: NCHCN 08:27
PROVIDERS: PCP Family Medicine; Visit Provider Family Medicine
DX: Z00.01 Encounter for general adult medical examination with abnormal findings (principal); E55.9 Vitamin D deficiency, unspecified; R74.8 Abnormal levels of other serum enzymes
CPT/HCPCS: 80053; 80061; 82306; 82977